=== PATIENT | male | born 1975 | race Caucasian/White ===

== ENCOUNTER 2023-09-17 11:12 | Emergency (ER) | payer OTHER ==
[~2023-09-17] VITALS: Ht 170.2 cm; Wt 84.8 kg
[2023-09-17] MEDS ORDERED: IBUPROFEN 600 MG TABLET ONE (12:12)
[2023-09-17] MEDS: IBUPROFEN 600 MG TABLET PO ONE (12:14)
[2023-09-17 14:05] VITALS: BP 121/59; TEMP 97.5; O2SAT 98
== END 2023-09-17 14:07 | disposition home or self-care (01) ==
LOC: ER 11:12
DX: M79.642 Pain in left hand (principal); V29.99XA Rider (driver) (passenger) of other motorcycle injured in unspecified traffic accident, initial encounter; Y93.89 Activity, other specified; Y92.89 Other specified places as the place of occurrence of the external cause; Y99.8 Other external cause status
CPT/HCPCS: 29125; 73110; 73130; 99284; L3763

== ENCOUNTER 2024-06-10 20:22 | Emergency (ER) | payer OTHER | END 2024-06-11 00:15 | disposition left against medical advice (07) | LOC: ER 20:24 | DX: Z04.1 Encounter for examination and observation following transport accident (principal); Z53.21 Procedure and treatment not carried out due to patient leaving prior to being seen by health care provider ==

== ENCOUNTER 2024-06-27 01:55 | Emergency (ER) | payer OTHER ==
[~2024-06-27] VITALS: Ht 170.2 cm; Wt 84.8 kg
[2024-06-27 02:39] LABS: BASOPHILS % (AUTO) 0.6 % (0.0-2.0); EOSINOPHILS # (AUTO) 0.1 K/uL (0.0-0.7); EOSINOPHILS % (AUTO) 1.6 % (0.0-6.0); HEMATOCRIT 36 % (39-51); HEMOGLOBIN 12.1 g/dL (13.5-17.5); LYMPHOCYTES # (AUTO) 2.2 K/uL (0.8-4.8); LYMPHOCYTES % (AUTO) 38.3 % (20.0-44.0); MEAN CORPUSCULAR HEMOGLOBIN 30 PG (26.0-33.0); MEAN CORPUSCULAR HGB CONC 34 g/dl (31.0-36.0); MEAN CORPUSCULAR VOLUME 89 fL (80-96); MONOCYTES # (AUTO) 0.5 K/uL (0.1-1.30); MONOCYTES % (AUTO) 8.9 % (2.0-12.0); NEUTROPHILS # (AUTO) 2.8 K/uL (1.8-8.9); NEUTROPHILS % (AUTO) 50.6 % (43.0-81.0); PLATELET COUNT (AUTO) 309 K/uL (150-450); RED BLOOD CELL COUNT(AUTO) 4.07 MIL/uL (4.5-6.0); RED CELL DISTRIBUTION WIDTH 13.6 % (11.5-15.0); WHITE BLOOD COUNT (AUTO) 5.6 K/uL (4.3-11.0)
[2024-06-27] MEDS ORDERED: IBUPROFEN 600 MG TABLET ONE (02:54)
[2024-06-27 02:55] LABS: POTASSIUM 3.7 mmol/L (3.5-5.1)
[2024-06-27] MEDS: IBUPROFEN 600 MG TABLET PO ONE (02:57)
[2024-06-27] MEDS ORDERED: HYDR-3976 GT (04:28)
[2024-06-27] MEDS ORDERED: METH-649 PO (04:28)
[2024-06-27] MEDS ORDERED: MECL-159 PO (04:37)
[2024-06-27 04:38] VITALS: BP 111/71; TEMP 98; O2SAT 97
== END 2024-06-27 04:39 | disposition home or self-care (01) ==
LOC: ER 01:55
DX: S32.008A Other fracture of unspecified lumbar vertebra, initial encounter for closed fracture (principal); S22.009A Unspecified fracture of unspecified thoracic vertebra, initial encounter for closed fracture; S22.42XA Multiple fractures of ribs, left side, initial encounter for closed fracture; S09.90XA Unspecified injury of head, initial encounter; Z86.73 Personal history of transient ischemic attack (TIA), and cerebral infarction without residual deficits; Z60.2 Problems related to living alone; V02.90XA Pedestrian on foot injured in collision with two- or three-wheeled motor vehicle, unspecified whether traffic or nontraffic accident, initial encounter; Y93.89 Activity, other specified; Y92.488 Other paved roadways as the place of occurrence of the external cause; Y99.8 Other external cause status
CPT/HCPCS: 36415; 70450-TC; 71250-TC; 73030-TC; 80048-TC; 85025-TC